=== PATIENT | male | born 1980 | race American Indian/Alaskan Native ===

== ENCOUNTER 2017-01-14 14:02 | Emergency (ER) | payer SELFPAY ==
[2017-01-14] MEDS ORDERED: NACL 0.9% 1000 ML 1,000 ML IV ONE (14:15)
[2017-01-14 15:18] LABS: Alanine Aminotransferase 11 units/L (7-56); Albumin/Globulin Ratio 0.9 %; Alkaline Phosphatase 83 units/L (35-129); Blood Urea Nitrogen 11 mg/dL (9-20); Calcium 9.1 mg/dL (8.4-10.2); Carbon Dioxide 25 mmol/L (22-30); Glucose 86 mg/dL (75-100); Lipase 26 units/L (13-60); Total Protein 8.7 g/dL (6.3-8.2)
[2017-01-14 15:19] LABS: Anion Gap 18 mmol/L; Chloride 103.2 mmol/L (98-107); Sodium 142 mmol/L (137-145)
[2017-01-14 15:24] LABS: Basophils % (Auto) 0.3 % (0.0-1.8); Eosinophils % (Auto) 1.5 % (0.0-4.3); Hematocrit 39.7 % (35.5-45.6); Hemoglobin 12.9 gm/dl (11.8-15.2); Mean Corpuscular HGB Conc 33 % (32-34); Mean Corpuscular Hemoglobin 29 pg (28-32); Mean Corpuscular Volume 89 fl (84-94); Platelet Count 250 K/mm3 (140-440); Red Blood Count 4.49 M/mm3 (3.65-5.03); Red Cell Distribution Width 13.8 % (13.2-15.2); White Blood Count 4.5 K/mm3 (4.5-11.0)
[2017-01-14 15:33] LABS: INR 1.07 (0.87-1.13)
[2017-01-14 15:34] LABS: Partial Thromboplastin Time 31.9 Sec. (24.2-36.6)
[2017-01-14 22:34] VITALS: BP 140/93
[2017-01-14] MEDS ORDERED: TYLENOL PO ONE (23:47)
== END 2017-01-15 00:50 | disposition left against medical advice (07) ==
LOC: ED 14:02
DX: K64.9 Unspecified hemorrhoids (principal); Z53.21 Procedure and treatment not carried out due to patient leaving prior to being seen by health care provider
CPT/HCPCS: 36415; 80053; 83690; 85025; 85610; 85730; 86850; 86900; 86901